=== PATIENT | male | born 1965 | race Caucasian/White ===

== ENCOUNTER 2020-01-24 11:56 | Inpatient (IN) | payer BC ==
[~2020-01-24] VITALS: Ht 175.3 cm; Wt 87.5 kg
--- NOTE | 2020-01-24 11:56 | NUR ---
PT BIB SELF C/O ABDOMINAL PAIN STARTED LAST NIGHT. PT IS AAOX4, NOT IN RESPIRATORY DISTRESS, HOOKED TO BUSINESS WRITER, KEPT RESTED AND COMFORTABLE. WILL CONTINUE TO MONITOR.
--- NOTE | 2020-01-24 12:07 | NUR ---
AT BEDSIDE FOR EVAL.
--- NOTE | 2020-01-24 12:10 | NUR ---
IV LINE ESTABLISHED BLOOD DRAWN AND SENT TO LAB.
[2020-01-24] MEDS ORDERED: MORPHINE SULFATE INJ 4 MG/ML DISP.SYRIN ONE (12:11)
[2020-01-24] MEDS ORDERED: ONDANSETRON HCL/PF 4 MG/2 ML VIAL ONE (12:11)
--- NOTE | 2020-01-24 12:21 | NUR ---
URINAL GIVEN BUT UNABLE TO PROVIDE URINE SPECIMEN THIS TIME.
[2020-01-24 12:28] LABS: BASOPHILS % (AUTO) 0.4 % (0.0-2.0); EOSINOPHILS % (AUTO) 0.3 % (0.0-6.0); HEMATOCRIT 54 % (39-51); HEMOGLOBIN 17.8 g/dL (13.5-17.5); LYMPHOCYTES # (AUTO) 1.3 /CMM (0.8-4.8); LYMPHOCYTES % (AUTO) 16.4 % (20.0-44.0); MEAN CORPUSCULAR HGB CONC 33 g/dl (31.0-36.0); MEAN CORPUSCULAR VOLUME 88 fL (80-96); MONOCYTES # (AUTO) 0.9 /CMM (0.1-1.30); NEUTROPHILS # (AUTO) 5.7 /CMM (1.8-8.9); NEUTROPHILS % (AUTO) 71.9 % (43.0-81.0); PLATELET COUNT (AUTO) 206 /CMM (150-450); RED BLOOD CELL COUNT(AUTO) 6.15 MIL/uL (4.5-6.0); WHITE BLOOD COUNT (AUTO) 7.9 K/uL (4.3-11.0)
[2020-01-24] MEDS ORDERED: IV NS 0.9% 500 ML BAG IV ONE (12:30)
[2020-01-24] MEDS ORDERED: MORPHINE SULFATE INJ 2 MG/ML DISP.SYRIN IV ONE (12:30)
[2020-01-24] MEDS ORDERED: ONDANSETRON HCL/PF 4 MG/2 ML VIAL IVP ONE (12:30)
--- NOTE | 2020-01-24 12:35 | NUR ---
PT IS WHEELED TO CT SCAN VIA [facility].
[2020-01-24 12:36] LABS: CALCIUM, SERUM 9.4 mg/dL (8.5-10.1); CARBON DIOXIDE 26 mmol/L (21-32); CHLORIDE 101 mmol/L (98-107); CREATININE 1.8 mg/dL (0.6-1.3); GLUCOSE 109 mg/dL (74-106); POTASSIUM 3.4 mmol/L (3.5-5.1); SODIUM SERUM 137 mmol/L (136-145); UREA NITROGEN, BLOOD 26 mg/dL (7-18)
[2020-01-24 12:42] LABS: ALANINE AMINOTRANSFERASE 36 U/L (12-78); ALBUMIN 4.6 g/dL (3.4-5.0); ALKALINE PHOSPHATASE 44 U/L (46-116); ASPARTATE AMINOTRANSFERASE 21 U/L (15-37); BILIRUBIN,DIRECT 0.5 mg/dL (0.0-0.2); BILIRUBIN,TOTAL 2.6 mg/dL (0.2-1.0); LIPASE 63 U/L (73-393); TOTAL PROTEIN, SERUM 8.8 g/dL (6.4-8.2)
[2020-01-24] MEDS ORDERED: ONDA-97 PO (13:59)
--- NOTE | 2020-01-24 14:07 | NUR ---
CALLED NURSING SUPP FOR TELE BED.
--- NOTE | 2020-01-24 14:09 | NUR ---
MOVE SHEET SUBMITTED TO ADMITTING AND CALLED FOR MS BED.
--- NOTE | 2020-01-24 14:13 | NUR ---
CALLED DR. ISLAS [phone]
--- NOTE | 2020-01-24 14:40 | NUR ---
NGT INSERTED AT R NOSTRIL G18 60 AT THE TIP. POSTIVE GURGLING SOUND ON THE EPIGASTRIC AREA AND POSITIVE GASTRIC CONTENT.
--- NOTE | 2020-01-24 14:45 | NUR ---
COVID SPECIMEN OBTAINED AND SENT TO LAB.
[2020-01-24] MEDS ORDERED: ONDANSETRON HCL/PF 4 MG/2 ML VIAL IVP PRN (15:00)
--- NOTE | 2020-01-24 15:34 | NUR ---
GOT BED 322-2
--- NOTE | 2020-01-24 15:40 | NUR ---
REPORT GIVEN TO AUDELIA SIFUENTES FOR ALISA.
[2020-01-24 16:00] VITALS: BP 140/95
[2020-01-24] MEDS ORDERED: PIPERACILLIN /TAZOBACTAM 4.5 G in IV D5W 50 ML IV ONE (16:00)
--- NOTE | 2020-01-24 16:00 | NUR ---
RN ADMITTING NOTES ADMITTED A 54 YEARS OLD, MALE, TO UNIT VIA GURNEY ACCOMPANIED BY ER STAFF. A/O X4. ABLE TO MAKE NEEDS KNOWN. NO COMPLAIN OF PAIN OR DISCOMFORT AT THIS TIME. PATIENT ORIENTED TO ROOM, STAFF AND UNIT. ON RA, SATING AT 100%. V/S TAKEN AND RECORDED. NOTED WITH NG TUBE ON RIGHT NARES, REFUSED PICTURES FOR SKIN ASSESSMENT, PER PATIENT " I DO NOT HAVE ANY OPEN WOUNDS". ABDOMEN IS TENDER. IV ACCESS ON LAC #18, IVF TO BE STARTED. SAFETY MEASURES INITIATED, BED PLACED IN LOWEST LOCKED POSITION WITH SIDE RAILS UP X2. CALL LIGHT PLACED WITHIN EASY REACH. WILL CONTINUE TO MONITOR.
[2020-01-24] MEDS: IV D5/0.45 NACL 1,000 ML IV PRN (16:21)
--- NOTE | 2020-01-24 18:36 | NUR ---
RN NOTES PATIENT IN BED RESTING COMFORTABLY IN MODERATE HIGH BACK REST. A/O X 4. ON ROOM AIR TOLERATING WELL. NO SIGNS OF DISTRESS NOTED THROUGHOUT THE SHIFT, NOTED WITH NGT ON RIGHT NARES. IV ACCESS ON LAC #18, INTACT AND PATENT RUNNING @75 ML/HR. SAFETY MEASURES ARE IN PLACE, BED IS LOCKED AND PLACED IN THE LOW POSITION, SIDE RAILS UP X 3. CALL LIGHT IS WITHIN REACH. WILL ENDORSE TO ICT SECURITY SPECIALIST NURSE FOR ALISA.
[2020-01-24] MEDS: MORPHINE SULFATE INJ 2 MG/ML DISP.SYRIN IV PRN ×2 (18:50→23:14)
--- NOTE | 2020-01-24 19:50 | NUR ---
MS RN NOTE: PATIENT RESTING IN BED, NO ACUTE DISTRESS NOTED. BREATHING EVEN AND UNLABORED, NO SOB NOTED. IV TO LAC IN PLACE, INFUSING D51/2NS AT 75ML/HR. NG-TUBE TO RIGHT NARE IN PLACE, HOB ELEVATED. BED LOCKED AND IN LOWEST POSITION, CALL LIGHT IN REACH. WILL CONTINUE TO MONITOR.
[2020-01-24 20:38] VITALS: BP 147/89
[2020-01-24] MEDS: PIPERACILLIN /TAZOBACTAM 3.375 G in IV D5W 100 ML IV SCH (21:15)
--- NOTE | 2020-01-24 23:20 | NUR ---
MS RN NOTE; PATIENT COMPLAINS OF ABDOMINAL PAIN 01/26, MORPHINE 2MG IV GIVEN PER MD ORDER. WILL CONTINUE TO MONITOR.
[2020-01-25] MEDS: PIPERACILLIN /TAZOBACTAM 3.375 G in IV D5W 100 ML IV SCH ×3 (05:35→22:26)
--- NOTE | 2020-01-25 06:15 | NUR ---
MS RN NOTE: PATIENT RESTING IN BED, NO ACUTE DISTRESS NOTED. BREATHING EVEN AND UNLABORED, NO SOB NOTED. IV TO LAC IN PLACE, INFUSING D51/2NS AT 75ML/HR. NG-TUBE TO RIGHT NARE IN PLACE, DRRAINED 400ML OF GREENISH/BLACK DRAINAGE, HOB ELEVATED. BED LOCKED AND IN LOWEST POSITION, CALL LIGHT IN REACH. WILL ENDORSE TO DAY NURSE TO CONTINUE WITH PLAN OF CARE.
[2020-01-25] MEDS: IV D5/0.45 NACL 1,000 ML IV PRN (06:28)
[2020-01-25 06:46] LABS: BASOPHILS % (AUTO) 0.6 % (0.0-2.0); EOSINOPHILS % (AUTO) 1.2 % (0.0-6.0); HEMATOCRIT 49 % (39-51); HEMOGLOBIN 16.2 g/dL (13.5-17.5); LYMPHOCYTES # (AUTO) 1.2 /CMM (0.8-4.8); LYMPHOCYTES % (AUTO) 17.3 % (20.0-44.0); MEAN CORPUSCULAR HGB CONC 33 g/dl (31.0-36.0); MEAN CORPUSCULAR VOLUME 87 fL (80-96); MONOCYTES # (AUTO) 1.1 /CMM (0.1-1.30); MONOCYTES % (AUTO) 15.9 % (2.0-12.0); NEUTROPHILS # (AUTO) 4.4 /CMM (1.8-8.9); PLATELET COUNT (AUTO) 184 /CMM (150-450); RED BLOOD CELL COUNT(AUTO) 5.63 MIL/uL (4.5-6.0); WHITE BLOOD COUNT (AUTO) 6.8 K/uL (4.3-11.0)
--- NOTE | 2020-01-25 07:25 | NUR ---
ms rn received on bed, awake,alert,oriented x4,ngt intact, connected to low intermittent suction,no sob noted, lungs are diminish,abdomen soft,tender,denies pain at this time,all needs attended.
[2020-01-25 08:00] VITALS: BP 141/89
--- NOTE | 2020-01-25 08:30 | NUR ---
ms rn patient is npo at this time, waiting for md.
[2020-01-25] MEDS ORDERED: PANTOPRAZOLE 40 MG VIAL IV SCH (09:00)
[2020-01-25 09:02] LABS: THYROID STIMULATING HORMONE 1.087 uIU/mL (0.358-3.74)
[2020-01-25 09:26] LABS: CALCIUM, SERUM 8.5 mg/dL (8.5-10.1); CREATININE 1.3 mg/dL (0.6-1.3); MAGNESIUM 2.4 mg/dL (1.8-2.4); PHOSPHORUS 3.5 mg/dL (2.5-4.9); POTASSIUM 3.5 mmol/L (3.5-5.1)
--- NOTE | 2020-01-25 09:30 | NUR ---
ms alex barnard called w/ order for small bowel follow through.
[2020-01-25] MEDS ORDERED: ENOXAPARIN SODIUM 40 MG/0.4 ML DISP.SYRIN SQ SCH (09:42)
--- NOTE | 2020-01-25 11:04 | NUR ---
ms rn patient went down for the procedure.
[2020-01-25] MEDS ORDERED: DIATR MEGLU/DIATRIZOATE SODIUM 120 ML BOTTLE (GASTROGRAPHIN) ONE (11:18)
--- NOTE | 2020-01-25 13:00 | NUR ---
ms rn called, asking for papers, social service aware.
--- NOTE | 2020-01-25 14:20 | NUR ---
ms rn came back from procedure, was seen by joselyn barnard, awaiting for orders.
--- NOTE | 2020-01-25 15:13 | NUR ---
E M [employer]sembler provided AUDELIA Nash letter of admission for this patient. AUDELIA Nash requesting it for patient's Ellie for an immigration appointment tomorrow 01/26/2020. AUDELIA Nash informed this SW that the patient's will garbage pick up worker letter of admission today 01/24.
[2020-01-25] MEDS: MORPHINE SULFATE INJ 2 MG/ML DISP.SYRIN IV PRN (15:50)
[2020-01-25 16:00] VITALS: BP 167/99
--- NOTE | 2020-01-25 19:15 | NUR ---
MS RN OPENING NOTES PATIENT AWAKE IN BED. A/OX4. NG TUBE PRESENT ON RIGHT NARE, CURRENTLY DISCONNECTED FROM WALL SUCTION. STABLE ON RA; NO C/O SOB OR PAIN AT THIS TIME; BREATHING IS EVEN AND UNLABORED. IV PRESENT ON LEFT AC, SIZE 18, INTACT & PATENT, HEP LOCKED AT THIS TIME. SAFETY MEASURES IN PLACE AND PATIENT'S NEEDS MET. BED LOCKED, HOB ELEVATED, SIDE RAILS X2, CALL LIGHT WITHIN REACH. WILL CONTINUE TO MONITOR.
--- NOTE | 2020-01-25 19:26 | NUR ---
MS RN NOTES PER DAY SHIFT RN, SPOKE WITH WOLFGANG ROMEO AND RECEIVED ORDERS TO REMOVE NG TUBE ON RIGHT NARE AND START PATIENT ON CLEAR LIQUID DIET. NG TUBE REMOVED, NO BLEEDING NOTED. WILL CONTINUE TO MONITOR.
[2020-01-25 20:00] VITALS: BP 145/92
[2020-01-25 20:59] VITALS: BP 145/92
[2020-01-26] VITALS: BP 135/78
[2020-01-26] MEDS: PIPERACILLIN /TAZOBACTAM 3.375 G in IV D5W 100 ML IV SCH (06:10)
[2020-01-26 07:25] LABS: BASOPHILS % (AUTO) 0.3 % (0.0-2.0); EOSINOPHILS % (AUTO) 0.8 % (0.0-6.0); HEMATOCRIT 47 % (39-51); HEMOGLOBIN 15.9 g/dL (13.5-17.5); LYMPHOCYTES # (AUTO) 1.9 /CMM (0.8-4.8); LYMPHOCYTES % (AUTO) 22.6 % (20.0-44.0); MEAN CORPUSCULAR HGB CONC 34 g/dl (31.0-36.0); MEAN CORPUSCULAR VOLUME 86 fL (80-96); MONOCYTES # (AUTO) 0.9 /CMM (0.1-1.30); MONOCYTES % (AUTO) 10.6 % (2.0-12.0); NEUTROPHILS # (AUTO) 5.5 /CMM (1.8-8.9); NEUTROPHILS % (AUTO) 65.7 % (43.0-81.0); PLATELET COUNT (AUTO) 196 /CMM (150-450); RED BLOOD CELL COUNT(AUTO) 5.47 MIL/uL (4.5-6.0); WHITE BLOOD COUNT (AUTO) 8.4 K/uL (4.3-11.0)
--- NOTE | 2020-01-26 07:28 | NUR ---
MS RN CLOSING NOTES PATIENT SLEEPING. A/OX4. STABLE ON RA; NO C/O SOB OR PAIN AT THIS TIME; BREATHING IS EVEN AND UNLABORED. IV PRESENT ON LEFT AC, SIZE 18, INTACT & PATENT, WITH ZOSYN RUNNING AT 25 ML/HR. SAFETY MEASURES IN PLACE AND PATIENT'S NEEDS MET. BED LOCKED, HOB ELEVATED, SIDE RAILS X2, CALL LIGHT WITHIN REACH. ENDORSED TO DAY SHIFT RN PLAN OF CARE.
--- NOTE | 2020-01-26 07:34 | NUR ---
ms rn received on bed, awake,alert,oriented x4,not in any form of distress, s/p ngt removal,started on clear, liquid diet,all needs attended.
--- NOTE | 2020-01-26 07:35 | NUR ---
ms rn patient still wants to go for his appointment in immigration office, wants to go [facility], texted chun lan already, waiting for him to call back.
[2020-01-26 07:50] LABS: ALBUMIN 3.4 g/dL (3.4-5.0); BILIRUBIN,TOTAL 1.6 mg/dL (0.2-1.0); CALCIUM, SERUM 8.5 mg/dL (8.5-10.1); CREATININE 1.3 mg/dL (0.6-1.3); MAGNESIUM 2.4 mg/dL (1.8-2.4); PHOSPHORUS 3.3 mg/dL (2.5-4.9); POTASSIUM 3.3 mmol/L (3.5-5.1); TOTAL PROTEIN, SERUM 7.1 g/dL (6.4-8.2)
--- NOTE | 2020-01-26 07:50 | NUR ---
ms rn was seen by dr. chinedu wagoner.
--- NOTE | 2020-01-26 07:55 | NUR ---
ms rn patient went [facility], cn aware.
[2020-01-26] MEDS ORDERED: POTASSIUM CHLORIDE 20 MEQ POWDER PACKET PO SCH (10:30)
== END 2020-01-26 07:50 | disposition left against medical advice (07) | DRG 388 ==
LOC: ER 12:00 → MED 15:41
PROVIDERS: ATTEND Nurse Practitioner Acute Care
DX: K56.609 Unspecified intestinal obstruction, unspecified as to partial versus complete obstruction (principal); N17.0 Acute kidney failure with tubular necrosis; R17 Unspecified jaundice; E87.6 Hypokalemia; D75.1 Secondary polycythemia; E86.1 Hypovolemia; K52.9 Noninfective gastroenteritis and colitis, unspecified; K56.7 Ileus, unspecified; E86.0 Dehydration
CPT/HCPCS: 36415; 71045-TC; 74250-TC; 80048-TC; 80053-TC; 80061-TC; 80076-TC; 83690-TC; 83735-TC; 84100-TC; 84443-TC; 84484-TC; 85025-TC; 87081-TC; 93307-TC; C9113; C9803-CS; G0378; J2270; J2405; J2543; J3490; J7040; J7060; Q9963